=== PATIENT | female | born 1955 | race Caucasian/White ===

== ENCOUNTER 2017-08-27 16:43 | Emergency (ER) | payer MEDICARE ==
--- NOTE | 2017-08-27 18:39 | Emergency Department Record ---
History of Present Illness - General Chief complaint: Swelling of legs Stated complaint: TINGLING LIPS AND FINGER TIPS, LEG SWELLING Time Seen by Provider: 08/27/17 18:35 Source: Patient Mode of Arrival: Ambulatory Limitations: No limitations - History of Present Illness Initial comments: 62 yo female presents to ED for evaluation of right lower extremity edema and pain symptoms for the past 4 days. Patient reports recent travel from [place] to [place], symptoms began following her flight. Patient denies history of DVT previously, does not take anticoagulation medications. Patient denies fevers, chills, or redness to the leg as well. Patient also reports intermittent bilateral shaheen-oral tingling to the mouth, denies facial weakness, difficulty closing her eyes, or focal weakness on examination. MD Complaint: Extremity swelling Onset/Timin -: Days(s) Location: Right, Lower Leg Consistency: Constant Improves with: Nothing Worsens with: Nothing Associated Symptoms: Denies other symptoms - Related Data Home Medications Medication Instructions Recorded Confirmed Last Taken Alprazolam [Xanax] 0.5 mg PO DAILY 08/27/17 08/27/17 08/26/17 Buspirone HCl [Buspar] 10 mg PO TID 08/27/17 08/27/17 08/26/17 Cholecalciferol (Vitamin D3) 10,000 unit PO DAILY 08/27/17 08/27/17 08/26/17 [Vitamin D3] Diltiazem HCl [Diltiazem ER] 180 mg PO DAILY 08/27/17 08/27/17 08/26/17 Duloxetine HCl [Cymbalta] 60 mg PO DAILY 08/27/17 08/27/17 08/26/17 Lamotrigine [Lamotrigine ER] 100 mg PO DAILY 08/27/17 08/27/17 08/26/17 Ranitidine HCl [Zantac] 300 mg PO DAILY 08/27/17 08/27/17 08/26/17 Trazodone HCl 100 mg PO QHS 08/27/17 08/27/17 08/26/17 Allergies Allergy/AdvReac Type Severity Reaction Status Date / Time sulfamethoxazole Allergy NEUROTOXICI Verified 08/27/17 17:27 [From Bactrim] TY trimethoprim [From Bactrim] Allergy NEUROTOXICI Verified 08/27/17 17:27 TY Travel Screening - Travel/Exposure Within Last 30 Days Have you traveled within the last 30 days?: No - Travel/Exposure Within Last Year Have you traveled outside the [place] in the last year?: No - Additonal Travel Details Have you been exposed to anyone with a communicable illness?: No - Travel Symptoms Symptom Screening: None Review of Systems Constitutional: Denies: Chills, Fever, Malaise, Night sweats Eyes: Denies: Eye discharge, Eye pain ENT: Denies: Congestion, Ear pain, Epistaxis Respiratory: Denies: Cough, Dyspnea Cardiovascular: Reports: Edema. Denies: Chest pain, Dyspnea on exertion Endocrine: Denies: Fatigue, Heat or cold intolerance Gastrointestinal: Denies: Abdominal pain, Nausea, Vomiting Genitourinary: Denies: Incontinence, Retention Musculoskeletal: Denies: Arthralgia, Back pain, Gout, Joint swelling Skin: Denies: Bruising, Change in color Neurological: Denies: Abnormal gait, Confusion, Headache, Tingling Psychiatric: Denies: Anxiety Hematological/Lymphatic: Denies: Anemia, Blood Clots Past Medical History - SOCIAL HISTORY Smoking Status: Never smoker Alcohol Use: None Drug Use: None - RESPIRATORY Hx Respiratory Disorders: Yes Hx Asthma: Yes - CARDIOVASCULAR Hx Cardio Disorders: Yes Hx Irregular Heartbeat: Yes (SVT) - NEURO Hx Neuro Disorders: Yes Hx Headaches: Yes Comment:: Picks disease - GI Hx GI Disorders: Yes Hx Reflux: Yes - Hx Genitourinary Disorders: Yes Hx Bladder Problem: Yes - ENDOCRINE Hx Endocrine Disorders: No - MUSCULOSKELETAL Hx Musculoskeletal Disorders: Yes Comment:: osteopenia, low back - PSYCH Hx Psych Problems: Yes Hx Anxiety: Yes Hx Depression: Yes - HEMATOLOGY/ONCOLOGY Hx Hematology/Oncology Disorders: No Family Medical History Any Significant Family History?: No Hx Cancer: Father Hx Heart Disease: Father, Mother Hx Stroke: Father Physical Exam - General General Appearance: Alert, Oriented x3, Cooperative, Mild distress Limitations: No limitations - Head Head exam: Atraumatic, Normocephalic, Normal inspection Head exam detail: negative: Abrasion, Contusion, Sigala's sign, General tenderness, Hematoma, Laceration - Eye Eye exam: Normal appearance. negative: Conjunctival injection, Periorbital swelling, Periorbital tenderness, Scleral icterus - ENT Ear exam: negative: Auricular hematoma, Auricular trauma Nasal Exam: negative: Active bleeding, Discharge, Dried blood, Sinus tenderness Mouth exam: negative: Drooling, Laceration, Tongue elevation - Neck Neck exam: Normal inspection. negative: Meningismus, Tenderness - Respiratory Respiratory exam: Normal lung sounds bilaterally. negative: Respiratory distress, Rhonchi, Stridor, Wheezes - Cardiovascular Cardiovascular Exam: Regular rate, Normal rhythm, Normal heart sounds - GI/Abdominal GI/Abdominal exam: Soft. negative: Rebound, Rigid, Tenderness - Rectal Rectal exam: Deferred - exam: Deferred - Extremities Extremities exam: Pedal edema, Other (Mild-moderate calf swelling of the RLE>LLE ). negative: Calf tenderness, Tenderness - Back Back exam: Denies: CVA tenderness (R), CVA tenderness (L) - Neurological Neurological exam: Alert, Normal gait, Oriented X3 - Psychiatric Psychiatric exam: Normal affect, Normal mood - Skin Skin exam: Normal color. negative: Abrasion Type of lesion: negative: abrasion Course Vital Signs 08/27/17 08/27/17 17:18 18:20 Temperature 98.3 F Pulse Rate 86 Pulse Rate [ 77 Pulse Ox Probe] Respiratory 20 16 Rate Blood Pressure 149/79 Blood Pressure 126/72 [Left Arm] Pulse Ox 99 98 - Reevaluation(s) Reevaluation #1: 08/27/17 19:33 Labs reviewed and are grossly unremarkable for an acute process. Awaiting US doppler results to exclude DVT. Reevaluation #2: 08/27/17 20:32 US Doppler of the lower extremities bilaterally: Negative for DVT Patient was updated on all results, no evidence for renal/hepatic disease, no evidence for DVT. Patient has no clinical evidence for Waters's palsy, no clinical evidence for CVA , and appears stable for discharge at this time. Medical Decision Making - Lab Data Result diagrams: 08/27/17 18:48 08/27/17 18:48 Disposition Disposition: Discharge Clinical Impression: Lower extremity edema Disposition: Home, Self-Care Condition: (2) Stable Instructions: Leg Edema (ED) Additional Instructions: Return to ED if your symptoms worsen or if you have any concerns. Follow-up with your family doctor in 3-5 days as directed. Forms: Patient Portal Access Time of Disposition: 20:34 Quality - Quality Measures Quality Measures: N/A - Blood Pressure Screening Does Patient Have Any of the Following: No Blood Pressure Classification: Hypertensive Reading Systolic Measurement: 149 Diastolic Measurement: 79 Screening for High Blood Pressure: < First Hypertensive BP, F/U Documented > [ [id number]] First Hypertensive Follow-up Interventions: Referral to alternative/primary care provider.
[2017-08-27 18:49] LABS: BASO % 0.5 % (0-6); GRAN % 64.9 % (47-80); HEMATOCRIT 41.1 % (35.0-47.0); HEMOGLOBIN 13.3 gm/dl (11.6-16.0); LYMPH % 19.3 % (16-45); MEAN CELL VOLUME 90.3 fl (81-97); MEAN CORPUSCULAR HEMOGLOBIN 29.2 pg (27-33); MEAN CORPUSCULAR HGB CONC 32.4 g/dl (32-36); MEAN PLATELET VOLUME 8.9 fl (7.4-10.4); MONO % 12.3 % (0-9); PLATELET COUNT 289 K/uL (130-400); RED BLOOD COUNT 4.55 M/uL (3.80-5.40); RED CELL DISTRIBUTION WIDTH 12.8 % (11.5-14.5); WHITE BLOOD COUNT W/O DIFF 6.6 K/uL (4.2-12.2)
[2017-08-27 19:00] LABS: BILIRUBIN,TOTAL < 0.20 mg/dL (0.2-1.0); BLOOD UREA NITROGEN 16 mg/dL (8-23); CREATININE 0.8 mg/dL (0.5-0.9); EST GLOMERULAR FILTRATION RATE > 60 mL/min; TOTAL PROTEIN 7.1 g/dL (6.6-8.7)
[2017-08-27 19:02] LABS: GLUCOSE,RANDOM 89 mg/dL (74-109)
[2017-08-27 19:05] LABS: ALB/GLOB RATIO 1.7 (1.1-1.8); ALBUMIN 4.5 g/dL (4.0-5.0); ALKALINE PHOSPHATASE 130 U/L (35-104); AST/SGOT 25 U/L (10.0-35.0)
[2017-08-27 19:06] LABS: ALT/SGPT 27 U/L (<33)
== END 2017-08-27 20:48 | disposition home or self-care (01) ==
LOC: ER 16:43
DX: R60.0 Localized edema (principal); R20.2 Paresthesia of skin; M79.661 Pain in right lower leg
CPT/HCPCS: 80053; 85025; 93970; 99283; 99284